=== PATIENT | female | born 1950 | race Caucasian/White ===

== ENCOUNTER 2024-09-28 18:00 | Outpatient (CLI) | payer MEDICARE, OTHER | END 2024-09-28 18:01 | disposition home or self-care (01) | LOC: CSHSLEEP 18:00 | PROVIDERS: ATTEND Physician Assistant | DX: G47.33 Obstructive sleep apnea (adult) (pediatric) (principal); R53.83 Other fatigue; R06.83 Snoring; I10 Essential (primary) hypertension | CPT/HCPCS: 95800 ==

== ENCOUNTER 2025-06-12 08:54 | Outpatient (CLI) | payer MEDICARE, OTHER | END 2025-06-12 08:55 | disposition home or self-care (01) | LOC: CSHSLEEP 08:54 | PROVIDERS: ATTEND Internal Medicine Critical Care Medicine | DX: G47.33 Obstructive sleep apnea (adult) (pediatric) (principal); R53.83 Other fatigue; R41.89 Other symptoms and signs involving cognitive functions and awareness; R06.83 Snoring; I10 Essential (primary) hypertension | CPT/HCPCS: 95800 ==